=== PATIENT | female | born 1960 | race Caucasian/White ===

== ENCOUNTER 2017-09-07 11:31 | Emergency (ER) | payer OTHER ==
[2017-09-07 12:10] VITALS: BP 120/79
--- NOTE | 2017-09-07 12:41 | UC ---
UC General HPI - HPI Summary HPI Summary: R EAR PAIN FOR ABOUT 2 WEEKS. NO DRAINAGE, INJURY OR URI BUT IT "FELT SWOLLEN" YESTERDAY. PT STATES 3RD INFECTION IN LESS THAN A YEAR. - History of Current Complaint Chief Complaint: UCGeneralIllness Stated Complaint: RIGHT EAR COMPLAINT Time Seen by Provider: 09/07/17 12:28 Hx Obtained From: Patient Onset/Duration: Gradual Onset Timing: Constant Pain Intensity: 8 Pain Radiates to: R NECK Aggravating: NOTHING Alleviating: NOTHING Associated Signs & Symptoms: Negative: Fever, Headache - Allergy/Home Medications Allergies/Adverse Reactions: Allergies Allergy/AdvReac Type Severity Reaction Status Date / Time MS Erythromycin Allergy Unknown Nausea And Verified 09/11/15 11:30 [Erythromycin] Vomiting ENVIROMENTAL Allergy Unknown Unknown Uncoded 09/11/15 11:30 Reaction Details Home Medications: Home Medications Albuterol 2.5MG/3ML (0.083%)* [Ventolin 2.5 MG/3 ML NEB.NIKKO*] 09/07/17 [History ] Albuterol Sulfate [Ventolin Hfa] 18 gm IH 09/07/17 [History] Cetirizine HCl [All Day Allergy] 10 mg PO 09/07/17 [History] Fluticasone NASAL SPRAY 50MCG* [Flonase NASAL SPRAY 50MCG*] 09/07/17 [History] Montelukast Sodium 10 mg PO 09/07/17 [History] Simvastatin 09/07/17 [History] Tramadol HCl 09/07/17 [History] PMH/Surg Hx/FS Hx/Imm Hx - Additional Past Medical History Additional PMH: om Endocrine History: Hyperthyroidism GI/ History: Gastroesophageal Reflux, Gall Bladder Disease Other History Of: Negative For: HIV, Hepatitis B, Hepatitis C, Anticoagulant Therapy - Surgical History Surgical History: Yes Surgery Procedure, Year, and Place: CHOLYSYSTECTOMY. HYSTERECTOMY - Family History Known Family History: Positive: None - Social History Occupation: Unemployed Lives: With Family Alcohol Use: Rare Substance Use Type: None Smoking Status (MU): Former Smoker When Did the Patient Quit Smoking/Using Tobacco: 30 YRS AGO - Immunization History Vaccination Up to Date: Yes Review of Systems Constitutional: Negative Skin: Negative Eyes: Negative ENT: Ear Ache - R Respiratory: Negative Cardiovascular: Negative Gastrointestinal: Negative Genitourinary: Negative Motor: Negative Neurovascular: Negative Musculoskeletal: Negative Neurological: Negative Psychological: Negative Is Patient Immunocompromised?: No All Other Systems Reviewed And Are Negative: Yes Physical Exam Triage Information Reviewed: Yes Appearance: Well-Appearing Vital Signs: Initial Vital Signs Temp 98.7 F 09/07/17 12:05 Pulse 69 09/07/17 12:05 Resp 18 09/07/17 12:05 BP 120/79 09/07/17 12:05 Pulse Ox 97 09/07/17 12:05 Vital Signs Reviewed: Yes Eyes: Positive: Conjunctiva Clear ENT: Positive: Pharynx normal, TMs normal, Other - R canal with mild erythema and pain with pressure to tragus. L canal is clear. No mastoid or parotid tenderness. No auricular adenopathy.. Negative: Nasal congestion, Nasal drainage Neck: Positive: Supple, Nontender, No Lymphadenopathy Respiratory: Positive: Lungs clear, Normal breath sounds, No respiratory distress Cardiovascular: Positive: RRR, No Murmur Abdomen Description: Positive: Nontender, No Organomegaly, Soft Bowel Sounds: Positive: Present Musculoskeletal: Positive: ROM Intact Neurological: Positive: Alert Psychological: Positive: Age Appropriate Behavior Skin Exam: Normal Course/Dx - Course Course Of Treatment: exam c/w OE, will tx ciprodex and ent f/u given the frequency of ear infections. - Differential Dx - Multi-Symptom Provider Diagnoses: R OE Discharge - Discharge Plan Condition: Critical Disposition: HOME Prescriptions: Ciproflox/Dexameth OTIC.SUSP* [Ciprodex OTIC.SUSP*] 3 drop .SEE ORDER BID #7 btl Patient Education Materials: Otitis Externa (ED) Referrals: Karlie Guillen NP [Primary Care Provider] - As Soon As Possible Ernie Casiano MD [Medical Doctor] - 6 Days Additional Instructions: CALL ENT TODAY TO BE SEEN 09/13/17.
== END 2017-09-07 12:48 | disposition home or self-care (01) ==
LOC: UCCORT 11:31
DX: H60.91 Unspecified otitis externa, right ear (principal); Z88.1 Allergy status to other antibiotic agents; Z91.048 Other nonmedicinal substance allergy status; Z87.891 Personal history of nicotine dependence
CPT/HCPCS: 99212; G0463

== ENCOUNTER 2018-06-16 09:20 | Emergency (ER) | payer OTHER ==
[2018-06-16 09:43] VITALS: BP 131/92
--- NOTE | 2018-06-16 10:05 | UC ---
General HPI - HPI Summary HPI Summary: pt presents with red, raised area on right buttock. pt states she woke up last night and felt something. States this morning increased redness. + Tender. No drainage. No fever, chills No analgesia taken. No h/o MRSA no other complaints Pt's medications reviewed this visit - History of Current Complaint Chief Complaint: UCSkin Stated Complaint: SKIN CONCERN Time Seen by Provider: 06/16/18 10:04 Hx Obtained From: Patient Pain Intensity: 0 - Allergy/Home Medications Allergies/Adverse Reactions: Allergies Allergy/AdvReac Type Severity Reaction Status Date / Time cat dander Allergy See Comment Verified 06/16/18 09:35 erythromycin base Allergy Nausea And Verified 06/16/18 09:35 Vomiting ENVIROMENTAL Allergy Unknown Unknown Uncoded 09/11/15 11:30 Reaction Details Home Medications: Home Medications Hydrocortisone 2.5% CREAM(NF) 1 applic TOPICAL BID PRN 06/16/18 [History Confirmed 06/16/18] PMH/Surg Hx/FS Hx/Imm Hx Previously Healthy: Yes Other History Of: Negative For: HIV, Hepatitis B, Hepatitis C, Anticoagulant Therapy - Surgical History Surgical History: Yes Surgery Procedure, Year, and Place: CHOLYSYSTECTOMY. HYSTERECTOMY - Family History Known Family History: Positive: Non-Contributory - Social History Occupation: Unemployed Lives: With Family Alcohol Use: Rare Substance Use Type: None Smoking Status (MU): Former Smoker When Did the Patient Quit Smoking/Using Tobacco: 35 YRS AGO - Immunization History Vaccination Up to Date: Yes Review of Systems All Other Systems Reviewed And Are Negative: Yes Skin: Positive: Other - left buttock Physical Exam - Summary Physical Exam Summary: Vital Signs Reviewed: Yes A+Ox3, no distress Eyes: Conjunctiva Clear, ENT: Hearing grossly normal Neck: Positive: Supple Respiratory: Positive: No respiratory distress, No accessory muscle use Musculoskeletal Exam: ambulatory without difficulty or gait abnormality Neurological: Positive: Alert, + sensation throughout Psychological: Positive: Normal Response To Family Skin: Positive: right buttock pt with 2 x 2 cm area of erythema with small ventral vesicle intact. + TTP + erythema, well demarcated. no fluctuance ,no induration Vital Signs: Initial Vital Signs Temp 97.7 F 06/16/18 09:40 Pulse 105 06/16/18 09:40 Resp 17 06/16/18 09:40 BP 131/92 06/16/18 09:40 Pulse Ox 99 06/16/18 09:40 Course/Dx - Course Course Of Treatment: Pt with 2x2 cm area of erythema right buttock - warm, well demarcated, and tender. No indication for abscess on exam. Pt not immuncompromised. Will Rx doxy to cover MRSA. warm soaks. motrin/apap. return precautions - Diagnoses Provider Diagnosis: Cellulitis of buttock, right Discharge - Sign-Out/Discharge Documenting (check all that apply): Patient Departure All imaging exams completed and their final reports reviewed: No Studies - Discharge Plan Condition: Stable Disposition: HOME Prescriptions: DOXYcycline CAP(*) [DOXYcycline 100MG CAP(*)] 100 mg PO BID #20 cap Patient Education Materials: MRSA (Methicillin-Resistant Staphylococcus Aureus ) (ED), Cellulitis (ED) Referrals: Karlie Guillen NP [Primary Care Provider] - Additional Instructions: As discussed, the doctor that evaluated you is concerned your skin infection may be caused by a resistant strain of staph aureus called (MRSA) Your provider has selected an antibiotic that would treat this infection Take antibiotics as prescribed until gone Apply warm soak cloths - 2-3 times a day for 10 minutess Okay to alternate ibuprofen (Advil, Motrin) and tylenol every 3 hours for pain If you develop increased reddness, red streaking, fever, increased pain or any other concerns it is recommended you go to the emergency department for further evaluation and treatment - Billing Disposition and Condition Condition: STABLE Disposition: Home
== END 2018-06-16 10:27 | disposition home or self-care (01) ==
LOC: UCCORT 09:20
DX: L03.317 Cellulitis of buttock (principal); Z88.1 Allergy status to other antibiotic agents; Z87.891 Personal history of nicotine dependence
CPT/HCPCS: 99212; G0463

== ENCOUNTER 2019-04-10 10:30 | Emergency (ER) | payer OTHER ==
[2019-04-10 10:56] VITALS: BP 131/81
--- NOTE | 2019-04-10 11:28 | UC ---
Ear Complaint HPI - HPI Summary HPI Summary: 58 year old female with PMH + for HTN, recent nose bleed requiring packing L side, presents with increased pain b/l ears, R>L, lasting x 2 weeks. was seen by PCP thought ot be allergies, continues to have pain, ? fever last night. NO prior ear infections, no recent illnesses. ? sinus pressure R side, none L. no throat pain, cough, SOB. - History of Current Complaint Chief Complaint: UCEar Stated Complaint: BILATERAL EAR PAIN Time Seen by Provider: 04/10/19 11:17 Hx Obtained From: Patient ?: No Onset/Duration: Gradual Onset, Lasting Weeks Severity Initially: Mild Severity Currently: Moderate Pain Intensity: 6 Pain Scale Used: 0-10 Numeric - Allergies/Home Medications Allergies/Adverse Reactions: Allergies Allergy/AdvReac Type Severity Reaction Status Date / Time cat dander Allergy See Comment Verified 04/10/19 10:56 erythromycin base Allergy Nausea And Verified 04/10/19 10:56 Vomiting ENVIROMENTAL Allergy Unknown Unknown Uncoded 04/10/19 10:56 Reaction Details PMH/Surg Hx/FS Hx/Imm Hx Cardiovascular History: Hypertension Other History Of: Negative For: HIV, Hepatitis B, Hepatitis C, Anticoagulant Therapy - Surgical History Surgical History: Yes Surgery Procedure, Year, and Place: CHOLYSYSTECTOMY. HYSTERECTOMY - Family History Known Family History: Positive: None, Non-Contributory - Social History Alcohol Use: Rare Substance Use Type: None Smoking Status (MU): Former Smoker When Did the Patient Quit Smoking/Using Tobacco: 32 years ago - Immunization History Vaccination Up to Date: Yes Review of Systems All Other Systems Reviewed And Are Negative: Yes Constitutional: Positive: Fever, Fatigue ENT: Positive: Ear Ache. Negative: Dental Pain, Sore Throat, Sinus Congestion, Sinus Pain/Tenderness Respiratory: Negative: Shortness Of Breath, Cough Psychological: Positive: Negative Is Patient Immunocompromised?: No Physical Exam Triage Information Reviewed: Yes Appearance: No Pain Distress, Well-Nourished, Ill-Appearing - minimal Vital Signs: Initial Vital Signs Temp 98.0 F 04/10/19 10:50 Pulse 63 04/10/19 10:50 Resp 18 04/10/19 10:50 BP 131/81 04/10/19 10:50 Pulse Ox 99 04/10/19 10:50 Vital Signs Reviewed: Yes Eyes: Positive: Conjunctiva Clear ENT: Positive: Pharynx normal, TM dull - L>R, TM red - L>R. Negative: Pharyngeal erythema, TM bulging, Tonsillar swelling, Tonsillar exudate, Sinus tenderness, Uvula midline Neck: Positive: Supple, Nontender, No Lymphadenopathy. Negative: Nuchal Rigidity, Tenderness @, Enlarged Nodes @ Respiratory: Positive: Chest non-tender, Lungs clear, Normal breath sounds, No respiratory distress, No accessory muscle use. Negative: Crackles, Rhonchi, Stridor, Wheezing Cardiovascular: Positive: RRR, No Murmur Psychological Exam: Normal Skin Exam: Normal Ear Complaint Course/Dx - Course Course Of Treatment: AOM: - OVer the counter medications to help with ear fullness/ pressure symptoms, such as ZYrtec/ CLaritin which may help with plane travel. - Increase fluid intake - MOtrin/ tylenol as needed for pain, symptoms - ANtibiotics as directed - FOllow up with primary physician kayla 2-3 days if no improvement - GO to ER with neck stiffness, fever > 102, increased pain - Differential Dx/Diagnosis Differential Diagnosis/HQI/PQRI: Cellulitis, Otitis Externa, Otitis Media, Trigeminal Nueralgia Provider Diagnosis: AOM (acute otitis media) Discharge ED - Sign-Out/Discharge Documenting (check all that apply): Patient Departure All imaging exams completed and their final reports reviewed: No Studies - Discharge Plan Condition: Good Disposition: HOME Prescriptions: Amoxicillin PO (*) [Amoxicillin 875 MG (*)] 875 mg PO BID #14 tab Patient Education Materials: Ear Infection (ED) Referrals: Geovanni Gould MD [Primary Care Provider] - Additional Instructions: - OVer the counter medications to help with ear fullness/ pressure symptoms, such as ZYrtec/ CLaritin which may help with plane travel. - Increase fluid intake - MOtrin/ tylenol as needed for pain, symptoms - ANtibiotics as directed - FOllow up with primary physician kayla 2-3 days if no improvement - GO to ER with neck stiffness, fever > 102, increased pain - Billing Disposition and Condition Condition: GOOD Disposition: Home
== END 2019-04-10 11:30 | disposition home or self-care (01) ==
LOC: UCCORT 10:30
DX: H66.93 Otitis media, unspecified, bilateral (principal); I10 Essential (primary) hypertension; Z87.891 Personal history of nicotine dependence
CPT/HCPCS: 99212; G0463